=== PATIENT | male | born 1960 | race African-American/Black ===

== ENCOUNTER 2016-12-01 19:11 | Emergency (ER) | payer MEDICARE, OTHER ==
[~2016-12-01] VITALS: Wt 80.0 kg
--- NOTE | 2016-12-01 19:39 | ERA ---
ER Documentation Chief Complaint Date/Time DATE: 12/01/16 TIME: 19:33 Chief Complaint FOUND ON BRIDGE SITTING ON OVERPASS BY , STATING SUICIDAL INTENT HPI This is a 55-year-old -Spanish male with a known history of fibromyalgia and schizophrenia that was brought into the emergency department by his after she found him sitting on a bridge overpass stating that he wanted to jump off and kill himself. The patient indicates he had been prescribed Seroquel for schizophrenia but has not taken any medications for the past 2 years. He indicates for the past 5 weeks he has been hearing voices which have been telling him that he is "worthless.". He indicates that today he started to feel like he did not want to live and therefore had a suicidal attempt. In 1999 the patient indicates he also attempted suicide by overdosing on prescription medications. He had been prescribed at that time [place] and oxycodone for his fibromyalgia. The patient also has a known history of a laminectomy 2 years prior to arrival which she was taking analgesic medication for but states he has not taken any analgesic medication for several weeks. He has no fevers no shaking or chills. He indicates he has had a nonproductive cough for several weeks and he has history of tobacco use but denies any night sweats or weight loss. And he also denies any difficulty in breathing. Alcohol use or illicit drug use. He has no homicidal thoughts or ideations ROS All systems reviewed and are negative except as per history of present illness. Physical Exam Vitals Vital Signs Date Time Temp Pulse Resp B/P Pulse Ox O2 Delivery O2 Flow Rate FiO2 12/01/16 19:15 98.8 108 20 127/91 98 Physical Exam Constitutional:Well-developed. Well-nourished. HEENT:Normocephalic. Atraumatic.Pupils were equal round reactive to light. Moist mucous membranes.No tonsillar exudates. Neck: No nuchal rigidity. No lymphadenopathy. No posterior cervical spine tenderness or step-offs. Respiratory: Not using accessory muscles of respiration.Lungs were clear to auscultation bilaterally. No rhonchi. No rales. No wheezing. Cardiovascular: Regular rate regular rhythm.No murmurs. No rubs were appreciated.S1, S2 normal. Distal pulses are palpable 2+ bilaterally. GI: Abdomen was soft. Nontender. Non Distended. No pulsatile abdominal masses or bruits. No rebound. No guarding. Bowel sounds were present and normal. Muscle skeletal: Full range of motion of both the upper and lower extremities bilaterally.Normal muscle tone.No assymetrical calf tenderness or swelling. Skin: No petechia, no purpura. No lesions on the palms or the soles of the feet. No maculopapular rash. Vitiligo of the bilateral dorsal aspects of the hands and lips appear NEURO: Patient was alert, awake, orientated x3.No facial droop. Gait observed and normal with no ataxia.Speech had regular rate and rhythm. No focal neurological deficits. Patient was experiencing active suicidal thoughts and ideations. No auditory tactile or visual hallucinations at this time Procedures/MDM The patient presented to the emergency department with an active suicidal ideation. My differential diagnosis included but was not limited to major depressive disorder, normal despondency, bipolar disorder, schizophrenia, anxiety disorder, borderline personality disorder, antisocial personality disorder, organic mental disorder, bereavement or alcohol or drug abuse. Ancillary lab work was obtained including blood alcohol level, drug screen and serum toxicology panel. The patient was provided a safe environment while in the emergency department with appropriate supervision. The patient will be seen and evaluated by the tele-psychiatrist as the patient was experiencing suicidal thoughts and ideations. The patient was placed on suicide watch with a one-to- one sitter. Also obtained a 1 view chest radiograph given that the patient is history of tobacco with a persistent cough and there is no evidence of pneumonia or tuberculosis Departure Diagnosis: Primary Impression: Suicide threat or attempt Condition: Serious IVETT GUTIERREZ Dec 01, 2016 19:39
[2016-12-01 20:15] LABS: ADD SCAN DIFF NO
[2016-12-01 20:23] LABS: BASOPHILS % 0.2 % (0.0-2.0); EOSINOPHILS # 0.1 10^3/ul (0.0-0.5); EOSINOPHILS % 1.2 % (0.0-7.0); HEMATOCRIT 50.8 % (42.0-52.0); HEMOGLOBIN 16.9 g/dl (14.0-18.0); LYMPHOCYTES # 2.5 10^3/ul (0.8-2.9); LYMPHOCYTES % 28.3 % (15.0-51.0); MEAN CORPUSCULAR HEMOGLOBIN 28.9 pg (29.0-33.0); MEAN CORPUSCULAR HGB CONC 33.3 g/dl (32.0-37.0); MEAN PLATELET VOLUME 11.7 fl (7.4-10.4); MONOCYTE # 0.8 10^3/ul (0.3-0.9); MONOCYTES % 8.8 % (0.0-11.0); NEUTROPHIL # 5.4 10^3/ul (1.6-7.5); NEUTROPHILS % 61.3 % (39.0-77.0); PLATELET COUNT 272 10^3/UL (140-415); RED BLOOD COUNT 5.84 10^6/ul (4.70-6.10); RED CELL DISTRIBUTION WIDTH 14.5 % (11.5-14.5); WHITE BLOOD COUNT 8.9 10^3/ul (4.8-10.8)
[2016-12-01 20:26] LABS: INR 0.96; PARTIAL THROMBOPLASTIN TIME 31.3 Sec (25.0-35.0); PROTIME 12.8 Sec (12.2-14.2)
[2016-12-01 20:29] LABS: CHLORIDE 106 mmol/L (97-110)
[2016-12-01 20:30] LABS: ALBUMIN 4.3 g/dl (3.3-4.9); SODIUM 144 mmol/L (135-144)
[2016-12-01 20:31] LABS: POTASSIUM 3.7 mmol/L (3.5-5.1)
[2016-12-01 20:33] LABS: ALANINE AMINOTRANSFERASE 21 IU/L (13-69); ALBUMIN/GLOBULIN RATIO 1.38; ALKALINE PHOSPHATASE 81 IU/L (42-121); ANION GAP 18 (8-16); ASPARTATE AMINO TRANSFERASE 20 IU/L (15-46); BILIRUBIN,INDIRECT 0.2 mg/dl (0-1.1); BILIRUBIN,TOTAL 0.2 mg/dl (0.2-1.3); BLOOD UREA NITROGEN 13 mg/dl (7-20); CALCIUM 9.8 mg/dl (8.4-10.2); CARBON DIOXIDE 24 mmol/L (21-31); CREATININE 1.35 mg/dl (0.61-1.24); GLUCOSE 143 mg/dl (70-220); TOTAL PROTEIN 7.4 g/dl (6.1-8.1)
[2016-12-01 20:36] LABS: ACETAMINOPHEN < 10.0 ug/ml (10.0-30.0); ETHANOL < 10.0 mg/dl; SALICYLATE < 1.0 mg/dl (5.0-30.0)
--- NOTE | 2016-12-01 20:39 | RADRPT ---
PROCEDURE: XR Chest. CLINICAL INDICATION: Altered level of consciousness. TECHNIQUE: Single frontal view of the chest was obtained COMPARISON: None FINDINGS: The heart and mediastinum are within normal limits. The lungs are clear. There is no pleural effusion or pneumothorax. IMPRESSION: No acute disease. RPTAT: [facility] Physician Anil Date Time Electronically viewed and signed by Abdoulaye Siddiqi Physician on 12/01/2016 20:39 RS/
--- NOTE | 2016-12-01 22:56 | PSY ---
Date/Time of Note Date/Time of Note DATE: 12/01/16 TIME: 22:50 Psychiatric Subjective Eval Consent Pt consented to telemedicine: Yes Subjective Evaluation Patient location: emergency Chief Complaint: FOUND ON BRIDGE SITTING ON OVERPASS BY , STATING SUICIDAL INTENT Reason for consult: Suicidal ideation History of present illness This is my second note - the first note appears to have been deleted. Patient is a 55 year old male with a history of schizophrenia who was found by his sitting on an overpass. He was contemplating jumping. Patient reports 4-5 weeks of depression with a depressed mood, anhedonia, impaired sleep, impaired appetite, thoughts of and command hallucinations telling him to kill himself. He is not taking any medication. His brought him to the hospital. Past psychiatric history Past diagnosis of schizophrenia. Past psychiatric admissions. Was previously given seroquel but has not taken medication in two years. Hospitalization: yes Family History None Medical history Problems Medical Problems: (1) Suicide threat or attempt Status: Acute Substance Abuse Substance use: No known substance abuse Social History Marital status: Level of education: Not addressed DPA/Conservatorship: No Occupation/Fci: Not addressed - pt drowsy Psychiatric Objective Eval Physical Examination: Physical Examination: Applicable Sleep: Insomnia Appetite: Decreased Energy: Decreased Interest: Adequate Mental Status Examination: Appearance: Groomed Eye Contact: Poor Psychomotor Activity: Slow Behavior: Cooperative Speech: Soft AFFECT: Blunt Mood: Depressed Though Process: Linear Thought Content: Hallucinations Suicidal: Yes Homicidal: No On 72 hour hold: No Orientation: x3 Cognition: Drowsy Insight: Impared Judgement: Impared Laboratory Results Laboratory Tests Test 12/01/16 19:50 Acetaminophen Level < 10.0ug/ml Activated Partial Thromboplast Time 31.3Sec Alanine Aminotransferase (ALT/SGPT) 21IU/L Albumin 4.3g/dl Albumin/Globulin Ratio 1.38 Alkaline Phosphatase 81IU/L Anion Gap 18 Aspartate Amino Transf (AST/SGOT) 20IU/L Basophils # 0.010^3/ul Basophils % 0.2% Blood Urea Nitrogen 13mg/dl Calcium Level 9.8mg/dl Carbon Dioxide Level 24mmol/L Chloride Level 106mmol/L Creatinine 1.35mg/dl Digoxin Level < 0.4ng/ml Direct Bilirubin 0.00mg/dl Eosinophils # 0.110^3/ul Eosinophils % 1.2% Ethyl Alcohol Level < 10.0mg/dl Globulin 3.10g/dl Glucose Level 143mg/dl Hematocrit 50.8% Hemoglobin 16.9g/dl INR International Normalized Ratio 0.96 Indirect Bilirubin 0.2mg/dl Lymphocytes # 2.510^3/ul Lymphocytes % 28.3% Mean Corpuscular Hemoglobin 28.9pg Mean Corpuscular Hemoglobin Concent 33.3g/dl Mean Corpuscular Volume 87.0fl Mean Platelet Volume 11.7fl Monocytes # 0.810^3/ul Monocytes % 8.8% Neutrophils # 5.410^3/ul Neutrophils % 61.3% Nucleated Red Blood Cells # 0.010^3/ul Nucleated Red Blood Cells % 0.0/100WBC Platelet Count 22359^3/UL Potassium Level 3.7mmol/L Prothrombin Time 12.8Sec Prothrombin Time Ratio 1.0 Red Blood Count 5.8410^6/ul Red Cell Distribution Width 14.5% Salicylates Level < 1.0mg/dl Sodium Level 144mmol/L Total Bilirubin 0.2mg/dl Total Protein 7.4g/dl White Blood Count 8.910^3/ul Assessment and Plan Assessment/Diagnosis [place] I: Major Depressive Disorder, Recurrent, Severe with Psychosis versus Primary Schizophrenic Illness Recommendation/Plan Medication Management Per inpatient psychiatry. While patient is waiting to be transferred consider offering Zyprexa 5mg. Psychotherapy N/A Pt. Caregiver/Family Education N.A Follow-up/Disposition Please transfer to inpatient psychiatry. He reports depression, suicidal ideation and command auditory hallucinations to take his life. 5150 Recommendation: Place Hold (Danger to self. ) ISRAEL BLANDON Dec 01, 2016 22:56
[2016-12-02 00:25] LABS: ADD UMIC NO; URINE BILIRUBIN (Dip) NEGATIVE (NEGATIVE); URINE BLOOD (Dip) NEGATIVE (NEGATIVE); URINE COLOR LT. YELLOW (YELLOW); URINE GLUCOSE (Dip) NEGATIVE (NEGATIVE); URINE KETONES (Dip) NEGATIVE (NEGATIVE); URINE LEUKOCYTE ESTERASE (Dip) NEGATIVE (NEGATIVE); URINE NITRITE (Dip) NEGATIVE (NEGATIVE); URINE TOTAL PROTEIN (Dip) NEGATIVE (NEGATIVE); URINE UROBILINOGEN (Dip) 0.2 E.U./dL (0.1-1.0)
[2016-12-02 00:37] LABS: CANNABINOIDS Positive (NEGATIVE)
[2016-12-02 00:42] LABS: BARBITURATES Negative (NEGATIVE); BENZODIAZEPINES Negative (NEGATIVE); COCAINE Positive (NEGATIVE); OPIATES Negative (NEGATIVE)
[2016-12-02 03:45] VITALS: TEMP 98.4
[2016-12-02 04:50] VITALS: BP 124/61; PULSE 81; RESP 17
== END 2016-12-02 04:50 ==
LOC: E/R 19:11
DX: T14.91 Suicide attempt (principal); R40.4 Transient alteration of awareness; Z87.891 Personal history of nicotine dependence
CPT/HCPCS: 71010; 80053; 80162; 80306; 80307; 81003; 85025; 85610; 85730